=== PATIENT | female | born 1950 | race Caucasian/White ===

== ENCOUNTER 2023-09-20 18:40 | Emergency (ER) | payer OTHER ==
[~2023-09-20] VITALS: Ht 162.6 cm; Wt 45.4 kg
[2023-09-20 18:43] VITALS: BP 153/85; PULSE 88; RESP 18; TEMP 99.2; O2SAT 99
[2023-09-20 20:00] VITALS: O2SAT 99
[2023-09-20] MEDS ORDERED: BACITRACIN OINT 500 UNITS/GM PKT TP ONE (20:49)
[2023-09-20] MEDS: BACITRACIN OINT 500 UNITS/GM PKT TP ONE (21:00)
[2023-09-20] MEDS ORDERED: HYDR-5191 PO (21:45)
== END 2023-09-20 21:52 | disposition home or self-care (01) ==
LOC: MED 18:40
DX: S22.31XA Fracture of one rib, right side, initial encounter for closed fracture (principal); S22.000A Wedge compression fracture of unspecified thoracic vertebra, initial encounter for closed fracture; S61.511A Laceration without foreign body of right wrist, initial encounter; S00.91XA Abrasion of unspecified part of head, initial encounter; M25.572 Pain in left ankle and joints of left foot; F17.200 Nicotine dependence, unspecified, uncomplicated; Z71.6 Tobacco abuse counseling; Z79.899 Other long term (current) drug therapy; W01.198A Fall on same level from slipping, tripping and stumbling with subsequent striking against other object, initial encounter; Y93.89 Activity, other specified; Y92.89 Other specified places as the place of occurrence of the external cause; Y99.8 Other external cause status
CPT/HCPCS: 70450; 70486; 72128; 73110; 73610; 99284